=== PATIENT | female | born 1985 | race Caucasian/White ===

== ENCOUNTER 2017-06-23 09:29 | Emergency (ER) | payer OTHER | END 2017-06-23 09:35 | disposition left against medical advice (07) | LOC: CED 09:29 | DX: Z53.21 Procedure and treatment not carried out due to patient leaving prior to being seen by health care provider (principal) ==

== ENCOUNTER → 2017-11-14 | Outpatient (CLI) | payer OTHER ==
[~2017-11-14] MED LIST: IOPAMIDOL (ISOVUE-300) 100 ML BTL ONE
== END ==
LOC: CIMAGING 08:25
PROVIDERS: ATTEND Physician Assistant
DX: K50.118 Crohn's disease of large intestine with other complication (principal); D73.4 Cyst of spleen
CPT/HCPCS: 74177-PO; Q9967

== ENCOUNTER 2017-11-23 22:04 | Emergency (ER) | payer OTHER ==
[2017-11-23] MEDS ORDERED: NS 500 ML IV ONE (22:17)
--- NOTE | 2017-11-23 22:19 | CPEKG ---
Heart Rate: 66 RR Interval: 909 P-R Interval: 160 QRSD Interval: 92 QT Interval: 408 QTC Interval: 428 P [place]: 16 QRS [place]: 10 T Wave [place]: 32 EKG Severity - NORMAL ECG - EKG Impression: SINUS RHYTHM Electronically Signed By: Ambar Culp 23-Nov-2017 22:35:45
[2017-11-23 22:26] VITALS: RESP 16
--- NOTE | 2017-11-23 22:29 | EDPHY ---
Addendum entered and electronically signed by Mason Kauffman MD 11/24/17 01:00: Correction to ED course: Patient did not received Toradol IV. Original Note: H & P Smoking Status: Never smoked Time Seen by Provider: 11/23/17 22:15 HPI/ROS: HPI Chest discomfort, concerned about pulmonary embolism. 32-year-old female by private vehicle with her friend. This patient reports that she developed left-sided anterior sub costal margin pain about 2 weeks ago. She reports that over that period of time it has gradually migrated up into her left upper chest. She reports that has been worse and constant over the last 1-2 days. She was seen by her primary care physician today who did a D -dimer. It was weakly positive at 0.52. Her primary care physician told her she would order a CT angiogram for chest but this apparently was not done. The patient presents the emergency department tonight complaining of continued pain and shortness of breath which is worse with exertion. The pain is described as aching and sharp and worse with deep breathing. She has not had a cough. No fever. ROS: Constitutional: No fever, no chills. No weakness. Eyes: No discharge. No changes in vision. ENT: No sore throat. No nasal congestion or rhinorrhea. Respiratory: No cough. As above. Cardiac: As above, no palpitations. Gastrointestinal: No abdominal pain, no vomiting, no diarrhea. Genitourinary: No hematuria. No dysuria or increased frequency with urination. Musculoskeletal: No back pain. No neck pain. No myalgias or arthralgias. Skin: No rashes. Neurological: No headache. No focal weakness or altered sensation. Past medical history: Endometriosis and Crohn's disease. Social history: Here with her friend. Nonsmoker. No alcohol. Physical Exam: General Appearance: Alert, no distress. This patient is responding to questions appropriately and in full sentences. This patient appears well- hydrated and well-nourished. Eyes: Pupils equal and round no pallor or injection. No lid edema, erythema or injection. Respiratory: There are no retractions, lungs are clear to auscultation with good air movement bilaterally. Cardiovascular: Regular rate and rhythm. No murmur. Neurological: Motor sensory function is grossly intact. Cranial nerves are normal. Gait is normal. Skin: Warm and dry, no rashes. Musculoskeletal: Neck is supple and nontender. Extremities are symmetrical. All joints range without pain or impingement. Psychiatric: No agitation. No depression. Database: EKG: EKG time is 10:18 p.m.; EKG shows a narrow complex normal sinus rhythm with a ventricular rate of 66. The [place], QRS, QT intervals are within normal limits. There are no ST-T wave changes indicative of ischemic or injury pattern. No evidence of right heart strain. Interpreted by me. Imaging: Procedures: Emergency department course: IV was placed. She was placed on a monitor. Vital signs reviewed and are normal. EKG obtained and reviewed by myself. I reviewed the patient's blood work from earlier today. D-dimer slightly elevated at 0.52. The patient is requesting a CT angiogram of her chest. She does not have any allergy to contrast dyes. She was started on IV normal saline with 500 cc to be given over the next hour. After verification of a negative test a normal creatinine CT angiogram of chest will be obtained. She endorses. 11:00 p.m., patient is awaiting CT angiogram. Vital signs have remained stable. Care turned over to Dr. Mason Kauffman at this time. Differential Diagnosis: The differential diagnosis on this patient includes but is not limited to pleurisy, costal chondritis. Pneumonia, pulmonary embolism, acute coronary syndrome, aortic dissection unlikely. This represents a partial list of diagnoses considered. These considerations are based on history, physical exam , past history, reassessment and diagnostic testing. (Ambar Culp) Constitutional: Initial Vital Signs Temperature (C) 36.6 C 11/23/17 22:05 Heart Rate 68 11/23/17 22:05 Respiratory Rate 16 11/23/17 22:05 Blood Pressure 160/94 H 11/23/17 22:05 O2 Sat (%) 95 11/23/17 22:05 O2 Delivery Mode Room Air Allergies/Adverse Reactions: infliximab [From Remicade] Allergy (Severe, Verified 03/13/16 18:09) Anaphylaxis adalimumab [From Humira] Allergy (Intermediate, Verified 03/13/16 18:09) Hives Home Medications: Medication Instructions Recorded Entyvio 03/13/16 Nuva Ring 03/13/16 Budesonide 11/23/17 Lexapro 11/23/17 Mercaptopurine 11/23/17 Multi-Vitamin Daily 11/23/17 Other Crohns Medication 11/23/17 Probiotic 11/23/17 Vitamine D 11/23/17 Medical Decision Making - Diagnostics Imaging Results: Imaging Impressions Chest/Thorax CTA 11/23/17 22:54 Impression: 1. There is no CT evidence for pulmonary emboli. 2. There is a nonspecific 1.1 x 1.6 x 1.7 cm soft tissue nodule in the anterior superior mediastinum which could represent a thymic nodule or a lymph node. Consider follow-up CT reevaluation in 3 months. Findings were discussed with Mason Kauffman MD at 23:45, on 11/23/2017. ED Course/Re-evaluation: The patient remained stable on monitor without ectopy. She had partial relief of her discomfort for by IV Toradol administered prior to my arrival. Her CT angio chest rule out pulmonary embolism. Dr. Hung, our radiologist reading CTs tonight notes a 1.6 x 1.1 cm round lesion anterior to the mediastinum on this patient that he suspects is a reactive lymph no but warrants a follow-up CT chest without IV contrast in 3 months. I counseled patient regarding this finding. No other abnormal findings are noted in her chest. Discussion: Patient with symptoms and findings that suggest pleurisy. Counseled regarding this we ruled out pulmonary embolism with CT angio tonight. Also, no evidence of coronary syndrome or other significant cardiopulmonary pathology in this patient. The plan is to go home on ibuprofen and Tylenol. I counseled the patient regarding her diagnosis in the answered all of her questions prior to discharge. She will follow up with primary care physician for any ongoing symptoms. She understands the need to return to the emergency department for any significant worsening despite treatment plan. (Mason Kauffman) - Data Points Laboratory Results: Laboratory Results 11/23/17 22:35 11/23/17 11/23/17 22:35 22:35 Sodium 140 mEq/L mEq/L (135-145) Potassium 4.6 mEq/L mEq/L (3.5-5.2) Chloride 102 mEq/L mEq/L (97-110) Carbon Dioxide 25 mEq/l mEq/l (22-31) Anion Gap 13 mEq/L mEq/L (8-16) BUN 11 mg/dL mg/dL (7-23) Creatinine 0.8 mg/dL mg/dL (0.6-1.0) Estimated GFR > 60 Glucose 98 mg/dL mg/dL (70-100) Calcium 9.4 mg/dL mg/dL (8.5-10.4) Troponin I < 0.012 ng/mL ng/mL (0.000-0.034) Beta HCG, Qual NEGATIVE Medications Given: Discontinued Medications Sodium Chloride (Ns) 500 mls @ 1,000 mls/hr IV EDNOW ONE PRN Reason: Protocol Stop: 11/23/17 22:46 Last Admin: 11/23/17 22:40 Dose: 500 mls Departure - Departure Disposition: Home, Routine, Self-Care Clinical Impression: Chest discomfort, Mediastinal nodule Condition: Good Instructions: Chest Pain (ED) Additional Instructions: Diagnosis:. Chest pain consistent with pleurisy 2. Mediastinal nodule The nodule noted on your anterior mediastinum is 1.5 cm in size and is likely a reactive lymph node the will typically resolved. However, we recommend a follow -up CT in 3 months to be ordered by her primary care physician-CT scan of chest without contrast to re-evaluate that area and see if that has resolved. Plan: Ibuprofen and Tylenol for pain as needed. Symptoms will typically improve over 1-4 weeks from this condition. Read and follow provided instructions. Follow-up with your primary care physician in 1-2 days for re-evaluation. Return to the emergency department for worsening symptoms or other serious concerns. Referrals: Naz Gustafson PA [Primary Care Provider] - As per Instructions
[2017-11-23] MEDS ORDERED: IOPAMIDOL (ISOVUE 370) 100 ML BTL IV ONE (22:58)
[2017-11-23 23:03] VITALS: O2SAT 96
[2017-11-24 00:06] VITALS: BP 139/88; PULSE 66; TEMP 98.1
== END 2017-11-24 00:07 | disposition home or self-care (01) ==
LOC: CED 22:04
DX: R07.89 Other chest pain (principal); J98.59 Other diseases of mediastinum, not elsewhere classified; E86.9 Volume depletion, unspecified
CPT/HCPCS: 71275-PO; 80048-PO; 84484-PO; 84703-PO; Q9967